=== PATIENT | male | born 1960 | race African-American/Black ===

== ENCOUNTER 2023-06-27 10:49 | Emergency (ER) | payer MEDICAID ==
[~2023-06-27] VITALS: Ht 175.3 cm; Wt 59.4 kg
[2023-06-27 12:37] VITALS: PULSE 95; RESP 16; O2SAT 98
[2023-06-27 12:43] VITALS: BP 154/84; PULSE 95; RESP 18; TEMP 98.3; O2SAT 98
== END 2023-06-27 12:53 | disposition short-term general hospital (02) ==
LOC: ER 10:49
DX: I62.9 Nontraumatic intracranial hemorrhage, unspecified (principal); E78.5 Hyperlipidemia, unspecified; I10 Essential (primary) hypertension
CPT/HCPCS: 70450